=== PATIENT | female | born 1955 | race Caucasian/White ===

== ENCOUNTER 2022-06-16 09:07 | Outpatient (CLI) | payer MEDICARE | END 2022-06-16 09:08 | disposition home or self-care (01) | LOC: BICMAMMO 09:07 | PROVIDERS: ATTEND Physician Assistant | DX: Z12.31 Encounter for screening mammogram for malignant neoplasm of breast (principal); Z91.89 Other specified personal risk factors, not elsewhere classified; Z80.3 Family history of malignant neoplasm of breast | CPT/HCPCS: 77063; 77067 ==

== ENCOUNTER 2023-05-28 05:36 | Observation (INO) | payer MEDICARE, OTHER ==
[2023-05-28] MEDS ORDERED: Ketorolac Tromethamine 30 MG/ML VIAL ONE ×2 (05:58→13:55)
[2023-05-28] MEDS ORDERED: Morphine 4 MG/ML VIAL ONE (06:50)
[2023-05-28 06:56] LABS: #Eosinphils 0.1 thou/uL (0.0-0.7); #Monocytes 0.5 thou/uL (0.11-0.59); #Neutrophils 4.8 thou/uL (1.40-6.50); %Basophils 0.5 % (0.0-1.0); %Eosinophils 1.6 % (0.0-10.0); %Lymphocytes 31.1 % (21.0-51.0); %Neutrophils 60.4 % (42.0-75.0); Hemoglobin 15.1 g/dL (12.0-16.0); Mean Corpuscular HGB CONC 35.8 g/dL (32.0-36.0); Mean Corpuscular Volume 92.1 fl (78.0-98.0); Platelet Count 267 10x3/uL (130-400); RBC Distribution Width 13.2 % (11.5-14.5); Red Blood Cell (RBC) Count 4.58 mill/uL (4.20-5.40); White Blood Cell (WBC) Count 7.9 10x3/uL (4.8-10.8)
[2023-05-28 07:21] LABS: ALT (SGPT) 35 U/L (8-55); AST (SGOT) 27 U/L (5-34); Albumin 4.2 g/dL (3.4-4.8); Alkaline Phosphatase 70 U/L (40-110); Anion Gap 14 mmol/L (10-20); BUN (Urea Nitrogen) 13 mg/dL (9.8-20.1); Bilirubin, Total 0.4 mg/dL (0.2-1.2); Calc. Creatinine Clearance 0 mL/min (70-130); Calcium 9.4 mg/dL (7.8-10.44); Carbon Dioxide 23 mmol/L (23-31); Chloride 107 mmol/L (98-107); Estimated GFR 76; Globulin 2.3 g/dL (2.4-3.5); Glucose 117 mg/dL (80-115); Potassium 4.1 mmol/L (3.5-5.1); Protein, Total 6.5 g/dL (5.8-8.1); Sodium 140 mmol/L (136-145)
[2023-05-28] MEDS ORDERED: Aspirin 325 MG TAB PO SCH (09:00)
[2023-05-28] MEDS ORDERED: Aspirin Chewable 81 MG TAB ONE (09:22)
[2023-05-28] MEDS ORDERED: Acetaminophen 325 MG TAB ONE (09:22)
[2023-05-28] MEDS ORDERED: Aspirin 325 MG TAB ONE ×2 (09:22→09:32)
[2023-05-28] MEDS: Acetaminophen 325 MG TAB PO PRN ×2 (09:28→20:09)
[2023-05-28] MEDS ORDERED: Iopamidol 370 76% 100 ML VIAL ONE (09:54)
[2023-05-28 10:19] LABS: Magnesium 1.8 mg/dL (1.6-2.6)
[2023-05-28 12:40] LABS: Troponin I Less than 0.010 ng/mL (< 0.028)
[2023-05-28] MEDS ORDERED: Nitroglycerin 0.4 MG TAB 1 EACH ONE ×2 (12:50→12:52)
[2023-05-28] MEDS: Nitroglycerin 0.4 MG TAB (25 Tab Bottle) SL PRN ×2 (12:55→17:27)
[2023-05-28] MEDS ORDERED: Ketorolac Tromethamine 30 MG/ML VIAL IVP SCH (14:00)
[2023-05-28 15:37] LABS: Troponin I Less than 0.010 ng/mL (< 0.028)
[2023-05-28 17:47] VITALS: BMI 29.6
[2023-05-28] MEDS ORDERED: Amlodipine 5 MG TAB PO SCH (21:15)
[2023-05-29] MEDS: Nitroglycerin 0.4 MG TAB (25 Tab Bottle) SL PRN (05:34)
[2023-05-29 05:35] LABS: Anion Gap 13 mmol/L (10-20); BUN (Urea Nitrogen) 15 mg/dL (9.8-20.1); Calc. Creatinine Clearance 84 mL/min (70-130); Calcium 9.7 mg/dL (7.8-10.44); Carbon Dioxide 23 mmol/L (23-31); Chloride 108 mmol/L (98-107); Estimated GFR 75; Glucose 98 mg/dL (80-115); Potassium 4.1 mmol/L (3.5-5.1); Sodium 140 mmol/L (136-145)
[2023-05-29 05:39] LABS: #Eosinphils 0.2 thou/uL (0.0-0.7); #Monocytes 0.6 thou/uL (0.11-0.59); %Basophils 0.4 % (0.0-1.0); %Lymphocytes 28.6 % (21.0-51.0); %Monocytes 7.3 % (0.0-10.0); %Neutrophils 61.3 % (42.0-75.0); Hemoglobin 14.2 g/dL (12.0-16.0); Mean Corpuscular HGB CONC 34.2 g/dL (32.0-36.0); Mean Corpuscular Hemoglobin 30.9 pg (27.0-31.0); Mean Corpuscular Volume 90.4 fl (78.0-98.0); Mean Platelet Volume 9.8 fL (7.4-10.4); Platelet Count 243 10x3/uL (130-400); RBC Distribution Width 13.3 % (11.5-14.5); Red Blood Cell (RBC) Count 4.59 mill/uL (4.20-5.40); White Blood Cell (WBC) Count 8.2 10x3/uL (4.8-10.8)
[2023-05-29] MEDS: Acetaminophen 325 MG TAB PO PRN ×2 (05:39→13:53)
[2023-05-29] MEDS ORDERED: Morphine 2 MG/ML VIAL SLOW IVP SCH (06:15)
[2023-05-29 08:09] VITALS: TEMP 97.9
[2023-05-29] MEDS ORDERED: Amlodipine 5 MG TAB PO SCH ×2 (09:00)
[2023-05-29] MEDS ORDERED: Ezetimibe 10 MG TAB PO SCH (09:00)
[2023-05-29] MEDS ORDERED: Aspirin Chewable 81 MG TAB PO SCH (09:00)
[2023-05-29] MEDS ORDERED: Regadenoson 0.4 MG/5 ML SYRINGE ONE (09:30)
[2023-05-29 12:00] VITALS: BP 160/76
[2023-05-29] MEDS ORDERED: Rosuvastatin 20 MG TAB PO SCH (21:00)
[2023-05-30] MEDS ORDERED: Aspirin Chewable 81 MG TAB PO SCH (09:00)
== END 2023-05-29 14:34 | disposition home or self-care (01) ==
LOC: ERS 05:36 → ERHOLD 08:39 → 2SW 17:08
PROVIDERS: ADMIT Internal Medicine; ATTEND Hospitalist
DX: R07.9 Chest pain, unspecified (principal); I10 Essential (primary) hypertension; E78.5 Hyperlipidemia, unspecified; K21.9 Gastro-esophageal reflux disease without esophagitis; F10.90 Alcohol use, unspecified, uncomplicated; Z79.899 Other long term (current) drug therapy
CPT/HCPCS: 71045; 71275; 74174; 78452; 80048; 83735; 84484 ×2; 85025; 85379; 93005; 93017; 94760 ×2; 96374; 96375; 96376 ×2; 99285; A9500; G0378 ×3; 36415; 80053; 84443; J1885; J2270; J2272; J2785; Q9967